=== PATIENT | male | born 1970 | race Caucasian/White ===

== ENCOUNTER 2021-09-30 06:17 | Observation (INO) | payer BC, SELFPAY ==
[2021-09-30] VITALS (8 sets, daily range): BP systolic 100–134; BP diastolic 52–74; PULSE 78–94; RESP 14–22; TEMP 36.1–39.2; O2SAT 90–96; BMI 43.7; BMI 49.5
--- NOTE | 2021-09-30 06:18 | CT_ITS ---
PROCEDURE INFORMATION: Exam: CTA Abdomen and Pelvis With Contrast Exam date and time: 09/30/2021 6:53 AM Age: 51 years old Clinical indication: Abdominal pain; Acute; Additional info: Back pain, severe, on xarelto TECHNIQUE: Imaging protocol: Computed tomographic angiography of the abdomen and pelvis with contrast material. 3D rendering (Not supervised by radiologist): MIP and/or 3D reconstructed images were created by the technologist. Radiation optimization: All CT scans at this facility use at least one of these dose optimization techniques: automated exposure control; mA and/or kV adjustment per patient size (includes targeted exams where dose is matched to clinical indication); or iterative reconstruction. Contrast material: ISOVUE 370; Contrast volume: 75 ml; Contrast route: INTRAVENOUS (IV); COMPARISON: ABDPELW/O CT ABD PELVIS W/O CONTRAST 07/25/2016 8:11 AM FINDINGS: Lungs: Mild linear atelectasis/fibrosis. Aorta: Minimal atherosclerotic disease. No aortic aneurysm. No aortic dissection. Celiac trunk and mesenteric arteries: No occlusion or significant stenosis. Renal arteries: No occlusion or significant stenosis. Right iliac arteries: No occlusion or significant stenosis. Left iliac arteries: No occlusion or significant stenosis. Liver: Probable fatty infiltration of the liver, which is suboptimally evaluated after IV contrast administration. Slightly nodular liver contour; question cirrhosis. Gallbladder and bile ducts: No calcified stones. No ductal dilation. Pancreas: Mild peripancreatic fat stranding suggestive of acute pancreatitis. There is slight stranding around the right adrenal gland, presumably from the pancreas. Spleen: No splenomegaly. Adrenal glands: There is slight stranding around the right adrenal gland, presumably from the pancreas. Kidneys and ureters: 2.8 cm left renal cyst. Stomach and bowel: No obstruction. No significant mucosal thickening. Appendix: No evidence of appendicitis. Intraperitoneal space: No free air. No significant fluid collection. Lymph nodes: No enlarged lymph nodes. Urinary bladder: Unremarkable. No mass. Reproductive: Unremarkable as visualized. Bones/joints: Degenerative changes of the spine. Bilateral pars defects at L5. Soft tissues: Unremarkable. IMPRESSION: 1. Mild peripancreatic fat stranding suggestive of acute pancreatitis. Correlate with lipase. 2. Minimal atherosclerotic disease. Otherwise unremarkable CTA. 3. Slightly nodular liver contour; question cirrhosis. 4. Please see the body of the report for additional findings.
--- NOTE | 2021-09-30 06:20 | HMH.EDGENADL ---
ED Disposition Clinical Impression: Acute pancreatitis Disposition: Still a Patient Condition on Discharge: Fair Instructions: DI for Low Back Pain - Critical Care Critical Care Time: No Attestation: On , the high probability of a clinically significant, sudden or life threatening deterioration of the following system(s) required my full and direct attention, intervention and personal management. The time I documented below is in addition to time spent performing reported procedures but includes the following listed in this critical care notation. Medical Decision Making - Sage Inquiry Pt receiving controlled substance: Yes Sage was queried for this patient: No Risks and benefits of using a controlled substance: were not discussed with pt by me Vital Signs: 09/30/21 06:11 09/30/21 07:24 Temperature 97.0 F L Temperature Source Oral Pulse Rate 88 Pulse Rate [Right Brachial] 88 Respiratory Rate 15 14 Blood Pressure 117/54 L Blood Pressure [Right Arm] 134/74 Blood Pressure Mean [Right Arm] 94 Blood Pressure Source Automatic Cuff Blood Pressure Source [Right Arm] Automatic Cuff Blood Pressure Position Supine Blood Pressure Position [Right Arm] Sitting 02 Sat by Pulse Oximetry 96 90 L Oxygen Delivery Method Room Air Room Air - Lab Data Lab Results 09/30/21 06:13: WBC 7.3, RBC 5.75, Hgb 12.1 L, Hct 37.8 L, MCV 65.7 L, MCH 21.1 L, MCHC 32.0, RDW 15.8, Plt Count 169, MPV 7.9, Neut % (Auto) 88.2 H, Lymph % (Auto) 6.1 L, [place] % (Auto) 5.1, Eos % (Auto) 0.2, Baso % (Auto) 0.4, Neut # (Auto) 6.4, Lymph # (Auto) 0.4 L, [place] # (Auto) 0.4, Eos # (Auto) 0.0, Baso # (Auto) 0.0, Total Counted 100, Neutrophils % (Manual) 88 H, Band Neutrophils % 6.0, Lymphocytes % (Manual) 3 L, Monocytes % (Manual) 3, Platelet Estimate Normal, Poikilocytosis 1+, Microcytosis 3+ 09/30/21 06:13: PT 11.7, INR 1.04, APTT 25.7 09/30/21 06:13: Sodium 139, Potassium 4.1, Chloride 110 H, Carbon Dioxide 23, Anion Gap 10.1, BUN 14, Creatinine 0.90, Estimated Creat Clear 96, Estimated GFR 89, Est GFR ( Amer) 107, Glucose 187 H, Calcium 9.4, Total Bilirubin 0.6, AST 41, ALT 38, Alkaline Phosphatase 39, Total Protein 6.7, Albumin 4.1, Globulin 2.6, Albumin/Globulin Ratio 1.6 09/30/21 06:13: Lipase 583 H 09/30/21 06:27: SARS-CoV-2 (PCR) Not detected, Influenza A Untype (PCR) Not detected, Influenza Type B (PCR) Not detected Result diagrams: 09/30/21 06:13 09/30/21 06:13 Orders (Tests/Meds): ED MEDICATIONS Discontinued Medications Generic Name Dose Route Start Last Admin Trade Name Freq PRN Reason Stop Dose Admin Iopamidol 100 ml 09/30/21 07:13 09/30/21 07:15 Iopamidol-370 (76%);100ml Bottle IV 09/30/21 07:14 100 ml ONCE ONE Administration Ketorolac Tromethamine 30 mg 09/30/21 07:48 09/30/21 07:51 Ketorolac 30mg/Ml Vial IV 09/30/21 07:49 30 mg ONCE ONE Administration Morphine Sulfate 6 mg 09/30/21 06:20 09/30/21 06:37 Morphine 4mg/Ml Syringe IV 09/30/21 06:21 6 mg ONCE ONE Administration Morphine Sulfate 4 mg 09/30/21 07:48 09/30/21 07:50 Morphine 4mg/Ml Syringe IV 09/30/21 07:49 4 mg ONCE ONE Administration Ondansetron HCl 4 mg 09/30/21 06:18 09/30/21 06:37 Ondansetron 4mg/2ml Vial IV 09/30/21 06:19 4 mg ONCE ONE Administration Ondansetron HCl 4 mg 09/30/21 07:49 09/30/21 07:51 Ondansetron 4mg/2ml Vial IV 09/30/21 07:50 4 mg ONCE ONE Administration Sodium Chloride 10 ml 09/30/21 07:13 09/30/21 07:14 Sodium Chloride 0.9% 10ml Syr (Rad Only) IV 09/30/21 07:14 10 ml ONCE ONE Administration Sodium Chloride 50 ml 09/30/21 07:13 09/30/21 07:14 0.9 % Sodium Chloride 50 Ml Vial IV 09/30/21 07:14 50 ml ONCE ONE Administration ORDERS Category Date Time Status UA [Urinalysis and Microscopic] Stat Lab 09/30/21 06:19 Ordered Medical Decision Narrative: DDx includes but not limited to aortic dissection, aortic aneurysm, retrope
[2021-09-30 06:27] LABS: Chloride 110 mmol/L (98-107); Potassium 4.1 mmoL/L (3.5-5.1); Sodium 139 mmol/L (136-145)
[2021-09-30 06:29] LABS: Alanine Aminotransferase 38 U/L (12-78); Blood Urea Nitrogen 14 mg/dl (9-20); Creatinine Clearance Estimated 96 mL/min (50-200); Estimated Glomerular Filt Rate 89 ml/min (>60); GFR (African American) 107 ML/MIN (>60)
[2021-09-30 06:30] LABS: Albumin Level 4.1 g/dl (3.5-5.0); Albumin/Globulin Ratio 1.6 (1.1-1.8); Alkaline Phosphatase 39 U/L (38-126); Anion Gap 10.1 mEq/L (5-15); Aspartate Amino Transferase 41 U/L (17-59); Bilirubin,Total 0.6 mg/dl (0.2-1.3); Calcium 9.4 mg/dl (8.4-10.2); Carbon Dioxide 23 mmol/L (22.0-30.0); Globulin 2.6 g/dL (1.3-3.2); Glucose 187 mg/dl (74-100); Total Protein,Serum 6.7 g/dl (6.3-8.2)
[2021-09-30 06:31] LABS: Basophils % 0.4 % (0.1-2.0); Eosinophils % 0.2 % (0.1-12.0); Hematocrit 37.8 % (42.0-52.0); Hemoglobin 12.1 g/dL (14.1-18.0); Lymphocytes # 0.4 K/mm3 (0.7-4.5); Lymphocytes % 6.1 % (10-50); Mean Corpuscular Hemoglobin 21.1 pg (27.0-31.2); Mean Corpuscular Volume 65.7 fl (80-94); Mean Platelet Volume 7.9 fl (7.4-10.4); Monocytes # 0.4 K/mm3 (0.1-1.0); Monocytes % 5.1 % (1.7-9.3); Neutrophils # 6.4 K/mm3 (1.8-7.8); Neutrophils % 88.2 % (37.0-80.0); Platelet Count 169 K/mm3 (142-424); Red Blood Count 5.75 M/mm3 (4.60-6.20); Red Cell Distribution Width 15.8 % (11.5-17.5); White Blood Count 7.3 K/mm3 (4.8-10.8)
[2021-09-30 06:33] LABS: MANUAL DIFFERENTIAL MANUAL DIFFERENTIAL (MANUAL DIFF)
[2021-09-30 06:38] LABS: Activated Partial Thrombo Time 25.7 seconds (22.8-30.6); INR 1.04 (0.9-1.1); Prothrombin Time 11.7 seconds (10.1-12.5)
[2021-09-30 06:39] LABS: Coronavirus 19, PCR Not Detected (NotDetected); Influenza A, PCR Not Detected (NotDetected); Influenza B, PCR Not Detected (NotDetected)
[2021-09-30 06:41] LABS: Lymphocytes % 3 % (10-50); Microcytosis 3+; Monocytes % 3 % (2-9); Neutrophils % 88 % (42-76); Platelet Estimate Normal; Poikilocytosis 1+; Total Cells Counted 100
[2021-09-30 06:56] LABS: Lipase 583 U/L (23-300)
--- NOTE | 2021-09-30 08:12 | PC.NURSE ---
had dr mayra davidson for this pt to talk about being admitted
--- NOTE | 2021-09-30 08:14 | PC.NURSE ---
dr hurley on the phone with dr nunez
--- NOTE | 2021-09-30 08:17 | PC.NURSE ---
going yo admit pt [facility] for acute pancreatitis
--- NOTE | 2021-09-30 08:21 | PC.NURSE ---
0818 bed assignment requested, room 200. all staff notified
--- NOTE | 2021-09-30 08:22 | HMH.PHAINT ---
MEDICATION RECONCILIATION COMPLETED ON PATIENT USING EXTERNAL FILL HISTORY FROM PHARMACY. -ANDREA CELESTIN, TOMD
--- NOTE | 2021-09-30 08:49 | PC.NURSE ---
report called to floor
--- NOTE | 2021-09-30 08:52 | PC.NURSE ---
o2 2L applied due to o2 sats of 88% ra
--- NOTE | 2021-09-30 09:37 | P.CONPHA_ITS ---
[facility] Pharmacy VTE Monitoring - Patient Demographics Admission date: 09/30/21 Report Date: 09/30/21 Time: 09:37 Allergies/Adverse Reactions: Patient Allergies venom-honey bee [BEE VENOM (HONEY BEE)] Allergy (Mild, Verified 03/03/18 06:38) Height: 1.75 m Weight: 152.067 kg Patient Problems: Current Active Problems Acute pancreatitis (Acute) - VTE Risk Labs: VTE Related Lab Results Hgb 12.1 g/dL (14.1-18.0) L 09/30/21 06:13 Hct 37.8 % (42.0-52.0) L 09/30/21 06:13 Plt Count 169 K/mm3 (142-424) 09/30/21 06:13 PT 11.7 seconds (10.1-12.5) 09/30/21 06:13 INR 1.04 (0.9-1.1) 09/30/21 06:13 APTT 25.7 seconds (22.8-30.6) 09/30/21 06:13 BUN 14 mg/dl (9-20) 09/30/21 06:13 Creatinine 0.90 mg/dl (0.66-1.25) 09/30/21 06:13 Estimated Creat Clear 96 mL/min (50-200) 09/30/21 06:13 - Prophylaxis VTE Prophylaxis Ordered?: Yes Types of VTE Prophylaxis: TEDS Knee High Location of Applied Device: Bilateral Lower Extremeties
--- NOTE | 2021-09-30 14:33 | HMH.HP ---
*Admission Date: 09/30/21 <Glenys Ugalde - 09/30/21 15:07> *Chief complaint: Back/abdominal pain and nausea <Ashly Ugaldehy - 09/30/21 15:07> *History of present illness: Mr. Mcmahon is a 51-year-old male patient with a history of pulmonary embolism in 1999 and in 2014, type 2 diabetes mellitus, hypercholesteremia, depression, sleep apnea who presented to [facility] emergency room after 4 days of acute right low back and abdominal pain. He states he has also been nauseated with vomiting and has been able to eat very little with poor fluid intake. He states he has not been able to take his medicines for 4 days either. His bowels have not moved for 4 days. He denies any upper respiratory symptoms but states he did have a fever. He is voiding without difficulty. With presentation to the emergency room he was found to be afebrile. White blood cell count was 7300 with a hemoglobin of 12.1 hematocrit of 37.8. Potassium was 4.1. BUN and creatinine were within normal limits. Liver function studies showed total bilirubin of 0.6, AST of 41, ALT of 38. Alkaline phosphatase was 39. Lipase was elevated at 583. He was given Ketorolac IV, morphine sulfate IV along with Zofran 4 mg IV. After observing the patient with reassessment he was given additional IV morphine. The patient felt the pain was still not controlled and did not want to go home. He prefered admission for better control of his pain. Thus he was admitted. He had a CTA of the abdomen/pelvis which revealed mild peripancreatic stranding suggestive of acute pancreatitis. Also noted was minimal atherosclerotic disease, slightly nodular liver contour questionng cirrhosis. At the time of this exam patient is awakened for assessment. He continues to have pain although states that it is not as severe. He has had a few sips of Sprite and retained. <Glenys Ugalde - 09/30/21 15:07> [facility] History Medical History: Reports:: Depression, Diabetes Mellitus Type 2, Hyperlipidemia, Pulmonary Embolism Denies:: Cancer, Diabetes Mellitus Type 1, MRSA <Glenys Ugalde 09/30/21 15:07> *Have you ever received a pneumonia vaccine?: No <Glenys Ugalde 09/30/21 15:07> *Have you received a flu vaccine this season?: Yes <Glenys Ugalde 09/30/21 15:07> Comment:: Sleep apnea <Glenys Ugalde 09/30/21 15:07> Amputation: No <Glenys Ugalde 09/30/21 15:07> Fractures: No <Glenys Ugalde 09/30/21 15:07> Comment: Dental procedure 2018 <Glenys Ugalde 09/30/21 15:07> - *Social History Last grade of school completed: High school graduate <Glenys Ugalde 09/30/21 15:07> Smoking Status: Former smoker <Glenys Ugalde 09/30/21 15:07> Smoking End Date: 40 years ago <Glenys Ugalde 09/30/21 15:07> Alcohol Intake: never <Glenys Ugalde 09/30/21 15:07> *Occupational Status:: employed <Glenys Ugalde 09/30/21 15:07> Housing: house <Glenys Ugalde 09/30/21 15:07> Household Members: none <Glenys Ugalde 09/30/21 15:07> *Travel in the last 8 weeks: None <Glenys Ugalde 09/30/21 15:07> Family Hx:: No significant family history, Other (Patient states he does not know family medical history.) <Glenys Ugalde 09/30/21 15:07> Review of Systems - Constitutional Reports fatigue, Reports fever(s) <Glenys Ugalde 09/30/21 15:07> - Eyes Denies change in vision <AftabGlenys 09/30/21 15:07> - ENT Denies ear pain, Denies sore throat <Glenys Ugalde 09/30/21 15:07> - *Cardiovascular Denies chest pain, Denies leg swelling <Glenys Ugalde 09/30/21 15:07> - *Respiratory Denies chest congestion, Denies cough, Denies shortness of breath, Denies coughing up blood <Glenys Ugalde 09/30/21 15:07> - *Gastrointestinal Reports abdominal pain (And mostly right mid flank/back pain), Reports constipation (Last bowel movement was 4 days ago), Reports nausea, Reports vomiting, Denies vomiting blood, Denies black, tarry stools <Glenys Ugalde - 09/30/21 15:07> - *Genitourinary
--- NOTE | 2021-09-30 15:06 | PC.NURSE ---
PATIENT HAS DONE WELL THIS SHIFT. MINIMAL COMPLAINTS. EDUCATION DONE ABOUT PANCREATITIS. DID ASK PATIENT IF SOMEONE COULD BRING HOME CPAP. AT THIS TIME STATED HE DIDNT KNOW. VITALS STABLE
--- NOTE | 2021-09-30 19:55 | PC.NURSE ---
Pt reporting pain at a 9.5 2hrs post last dose of pain medication. Notified that Pt was groaning and rolling around in bed. Pt report of uncontrolled pain and Dx. of pancreatitis. Dr. Hood ordered Morphine to be changed to 5mg Q3hrs PRN and Tylenol 650mg Q 4hrs routine. To help control pain. Pt notified of changes. Dr. Hood stated that PT could have the 5mg of morphine and the Tylenol now. Even though he got the last dose of Morphine 2 hrs prior.
[2021-10-01 02:09] LABS: POC Glucose,Bedside 139 (70-110)
[2021-10-01 02:56] VITALS: RESP 16
[2021-10-01 04:00] VITALS: BP 115/60; PULSE 65; RESP 18; TEMP 37; O2SAT 93
[2021-10-01 05:16] VITALS: BMI 50.3
--- NOTE | 2021-10-01 05:44 | PC.NURSE ---
0400 Pt awakes easily with verbal stimulation. Pt continues to c/o pain in his abd. Morphine increased and Pt reports that pain is now controlled. PT stated that the pain is worse with movement. PT stated i thought that I would have felt better by now. No other changes from initial assessment this shift.
[2021-10-01 06:44] LABS: Basophils % 0.4 % (0.1-2.0); Eosinophils % 0.2 % (0.1-12.0); Hematocrit 36.5 % (42.0-52.0); Hemoglobin 11.4 g/dL (14.1-18.0); Lymphocytes # 0.5 K/mm3 (0.7-4.5); Lymphocytes % 11.2 % (10-50); Mean Corpuscular HGB Conc 31.2 g/dL (31.8-35.4); Mean Corpuscular Hemoglobin 20.8 pg (27.0-31.2); Mean Corpuscular Volume 66.7 fl (80-94); Mean Platelet Volume 8.2 fl (7.4-10.4); Monocytes # 0.3 K/mm3 (0.1-1.0); Monocytes % 6.3 % (1.7-9.3); Neutrophils # 3.9 K/mm3 (1.8-7.8); Platelet Count 131 K/mm3 (142-424); Red Blood Count 5.47 M/mm3 (4.60-6.20); Red Cell Distribution Width 15.6 % (11.5-17.5); White Blood Count 4.8 K/mm3 (4.8-10.8)
[2021-10-01 06:47] LABS: Chloride 104 mmol/L (98-107); Potassium 4.1 mmoL/L (3.5-5.1); Sodium 136 mmol/L (136-145)
[2021-10-01 06:49] LABS: Amylase 63 U/L (30-110)
[2021-10-01 06:50] LABS: Alanine Aminotransferase 44 U/L (12-78); Albumin Level 3.5 g/dl (3.5-5.0); Albumin/Globulin Ratio 1.4 (1.1-1.8); Alkaline Phosphatase 39 U/L (38-126); Anion Gap 6.1 mEq/L (5-15); Aspartate Amino Transferase 49 U/L (17-59); Bilirubin,Total 0.6 mg/dl (0.2-1.3); Blood Urea Nitrogen 13 mg/dl (9-20); Carbon Dioxide 30 mmol/L (22.0-30.0); Creatinine Clearance Estimated 93 mL/min (50-200); Estimated Glomerular Filt Rate 89 ml/min (>60); GFR (African American) 107 ML/MIN (>60); Globulin 2.5 g/dL (1.3-3.2); Glucose 131 mg/dl (74-100)
[2021-10-01 07:18] LABS: Chol/HDL Ratio 3.2 (1-3.5); Cholesterol 143 mg/dl (140-200); HDL Cholesterol 45 mg/dl (40-60); Lipase 223 U/L (23-300); Triglycerides 161 mg/dl (30-150); VLDL Cholesterol 32 mg/dL (0-40)
[2021-10-01 07:29] LABS: Direct LDL Cholesterol 62.04 mg/dL (100-129)
[2021-10-01 07:57] VITALS: BMI 50.3
[2021-10-01 08:00] VITALS: BP 96/47; PULSE 66; RESP 15; TEMP 36.7; O2SAT 88; O2SAT 95
--- NOTE | 2021-10-01 09:11 | HMH.ACPN2 ---
Internal Medicine - PN: Subj *Date: 10/01/21 *Time: 09:11 Interval history: Patient with no new complaints, did have more pain overnight. Exam Vital signs and Labs for Last 24 Hours: Temp Pulse Resp BP Pulse Ox 98.6 F 65 18 115/60 93 L 10/01/21 04:00 10/01/21 04:00 10/01/21 04:00 10/01/21 04:00 10/01/21 04:00 Laboratory Results - last 24 hr 10/01/21 01:48: POC Glucose 139 H 10/01/21 06:29: WBC 4.8 D, RBC 5.47, Hgb 11.4 L, Hct 36.5 L, MCV 66.7 L, MCH 20.8 L, MCHC 31.2 L, RDW 15.6, Plt Count 131 L, MPV 8.2, Neut % (Auto) 82.0 H, Lymph % (Auto) 11.2, [place] % (Auto) 6.3, Eos % (Auto) 0.2, Baso % (Auto) 0.4, Neut # (Auto) 3.9, Lymph # (Auto) 0.5 L, [place] # (Auto) 0.3, Eos # (Auto) 0.0, Baso # (Auto) 0.0 10/01/21 06:29: Sodium 136, Potassium 4.1, Chloride 104, Carbon Dioxide 30, Anion Gap 6.1, BUN 13, Creatinine 0.90, Estimated Creat Clear 93, Estimated GFR 89, Est GFR ( Amer) 107, Glucose 131 H, Calcium 8.0 L, Total Bilirubin 0.6, AST 49, ALT 44, Alkaline Phosphatase 39, Total Protein 6.0 L, Albumin 3.5 D, Globulin 2.5, Albumin/Globulin Ratio 1.4, Amylase 63 10/01/21 06:29: Triglycerides 161 H, Cholesterol 143, LDL Cholesterol Direct 62.04 L, VLDL Cholesterol 32, HDL Cholesterol 45, Cholesterol/HDL Ratio 3.2, Lipase 223 Vital Signs - 24 hr 09/30/21 09:19 09/30/21 09:20 09/30/21 15:58 Temperature 98 F 99.4 F 98.5 F Pulse Rate 87 Pulse Rate [Right Brachial] 86 78 Respiratory Rate 22 20 18 Blood Pressure 118/74 Blood Pressure [Right Arm] 126/65 100/52 L 02 Sat by Pulse Oximetry 94 L 09/30/21 20:00 09/30/21 20:16 10/01/21 02:56 Temperature 102.6 F H Pulse Rate Pulse Rate [Right Brachial] 82 Respiratory Rate 18 16 16 Blood Pressure Blood Pressure [Right Arm] 129/66 02 Sat by Pulse Oximetry 92 L 10/01/21 04:00 Temperature 98.6 F Pulse Rate Pulse Rate [Right Brachial] 65 Respiratory Rate 18 Blood Pressure Blood Pressure [Right Arm] 115/60 02 Sat by Pulse Oximetry 93 L I & O for Last 24 hours: Intake & Output 09/28/21 09/29/21 09/30/21 10/01/21 23:59 23:59 23:59 23:59 Intake Total 780 / 780 Output Total 400 / 500 100 / 100 Balance 380 / 280 -100 / -100 Weight 335 lb 4 oz 340 lb 1.6 oz - Constitutional no acute distress - *Routine HEENT Exam Head: Present: normocephalic Eye: Present: EOMI, PERRL ENT: Present: mucous membranes moist - *Routine Neck Exam Present: supple. Absent: lymphadenopathy - *Routine Respiratory Exam Present: CTA bilaterally - *Routine Cardiovascular Exam Present: RRR - *Routine Abdominal Exam Present: soft, normoactive bowel sounds, tenderness (minimal epigastric) - *Routine Extremities Exam Absent: cyanosis, clubbing, edema - *Routine Skin Exam Present: warm. Absent: rash - *Routine Neurological Exam Present: alert, oriented X3 Assessment and Plan (1) Acute pancreatitis Status: Acute Category: Medical Code(s): K85.90 - Acute pancreatitis without necrosis or infection, unspecified (2) Hypertriglyceridemia Status: Chronic Category: Medical Code(s): E78.1 - Pure hyperglyceridemia (3) Type 2 diabetes mellitus Status: Chronic Category: Medical Code(s): E11.9 - Type 2 diabetes mellitus without complications (4) History of pulmonary embolism Status: Chronic Category: Medical Code(s): Z86.711 - Personal history of pulmonary embolism (5) Obesity Status: Chronic Category: Medical Code(s): E66.9 - Obesity, unspecified - Assessment and plan all Dx Assessment and Plan for all problems:: Lipase has improved, cont. current treatment.
[2021-10-01 16:00] VITALS: BP 122/66; PULSE 85; RESP 22; TEMP 36.7; O2SAT 92
--- NOTE | 2021-10-01 19:21 | PC.NURSE ---
AOX4, ABLE TO MAKE NEEDS KNOWN TO STAFF, HAS REFUSED TYLENOL STATING THAT IT DOESNT WORK. PAIN WELL CONTROLLED WITH MORPHINE. 2LNC. TOLERATING LIQUIDS WELL.
[2021-10-01 20:00] VITALS: BP 120/67; PULSE 81; RESP 18; TEMP 37.9; O2SAT 90
[2021-10-02] VITALS (8 sets, daily range): BP systolic 101–135; BP diastolic 65–78; PULSE 65–79; RESP 16–22; TEMP 36.6–37.6; O2SAT 90–97; BMI 50.3
--- NOTE | 2021-10-02 06:06 | PC.NURSE ---
0400 PT refused IV fluids this shift and tylenol. Pt stated that he wanted to go home and that he felt much better now. Pt has only taken x1 dose of morphine thus far. Able to make needs known and call patel within reach.
--- NOTE | 2021-10-02 08:13 | HMH.ACPN2 ---
<Glenys Ugalde - Last Filed: 10/02/21 08:13> Internal Medicine - PN: Subj *Date: 10/02/21 *Time: 08:13 Interval history: Patient is miserable. States the abdominal pain is worse than ever. Pain medicine does help. Bowels have not moved but he is passing flatus. He was awake all night. He is able to take some clear liquids. He is voiding QS. He has not walked or has not been out of bed. He does sit on the side of the bed. Bowels have not moved. He occasionally has some slight nausea. But his biggest complaint is abdominal pain. Exam Vital signs and Labs for Last 24 Hours: Temp Pulse Resp BP Pulse Ox 98.8 F 79 22 135/78 90 L 10/02/21 07:44 10/02/21 07:44 10/02/21 07:44 10/02/21 07:44 10/02/21 07:44 I & O for Last 24 hours: Intake & Output 09/29/21 09/30/21 10/01/21 10/02/21 11:59 11:59 11:59 11:59 Intake Total 780 / 780 1580 / 1580 Output Total 500 / 500 725 / 725 Balance 280 / 280 855 / 855 Weight 335 lb 4 oz 339 lb 8.19 oz 339 lb 8.19 oz - Constitutional mild distress Comments: Sitting on the bedside and appears in pain - *Routine Respiratory Exam Present: CTA bilaterally (Anteriorly and posteriorly) - *Routine Cardiovascular Exam Present: RRR - *Routine Abdominal Exam Present: soft, tenderness, obese. Absent: normoactive bowel sounds (Hyperactive) - *Routine Extremities Exam Absent: edema, calf tenderness - *Routine Neurological Exam Present: alert, oriented X3 Assessment and Plan (1) Acute pancreatitis Status: Acute Category: Medical Code(s): K85.90 - Acute pancreatitis without necrosis or infection, unspecified (2) Hypertriglyceridemia Status: Chronic Category: Medical Code(s): E78.1 - Pure hyperglyceridemia (3) Type 2 diabetes mellitus Status: Chronic Category: Medical Code(s): E11.9 - Type 2 diabetes mellitus without complications (4) History of pulmonary embolism Status: Chronic Category: Medical Code(s): Z86.711 - Personal history of pulmonary embolism (5) Obesity Status: Chronic Category: Medical Code(s): E66.9 - Obesity, unspecified - Assessment and plan all Dx Assessment and Plan for all problems:: Continue with pain management. Ambulation encouraged. <Santi Wilson - Last Filed: 10/02/21 14:01> Internal Medicine - PN: Subj *Date: 10/02/21 *Time: 14:01 Exam Vital signs and Labs for Last 24 Hours: Temp Pulse Resp BP Pulse Ox 98.8 F 79 22 135/78 90 L 10/02/21 07:44 10/02/21 07:44 10/02/21 07:44 10/02/21 07:44 10/02/21 07:44 I & O for Last 24 hours: Intake & Output 09/29/21 09/30/21 10/01/21 10/02/21 23:59 23:59 23:59 23:59 Intake Total 780 / 780 960 / 960 860 / 860 Output Total 400 / 500 425 / 825 400 / 400 Balance 380 / 280 535 / 135 460 / 460 Weight 335 lb 4 oz 339 lb 8.19 oz 339 lb 8.19 oz Assessment and Plan (1) Acute pancreatitis Status: Acute Category: Medical Code(s): K85.90 - Acute pancreatitis without necrosis or infection, unspecified (2) Hypertriglyceridemia Status: Chronic Category: Medical Code(s): E78.1 - Pure hyperglyceridemia (3) Type 2 diabetes mellitus Status: Chronic Category: Medical Code(s): E11.9 - Type 2 diabetes mellitus without complications (4) History of pulmonary embolism Status: Chronic Category: Medical Code(s): Z86.711 - Personal history of pulmonary embolism (5) Obesity Status: Chronic Category: Medical Code(s): E66.9 - Obesity, unspecified - Assessment and plan all Dx Assessment and Plan for all problems:: Saw patient, agree with above note.
--- NOTE | 2021-10-02 11:59 | PC.NURSE ---
OFFERED PT ANGELA TYLENOL DOSE. HE REFUSED ADMINISTRATION.
[2021-10-03] VITALS: BP 134/74; PULSE 80; RESP 20; TEMP 36.7; O2SAT 95
[2021-10-03 04:00] VITALS: BP 121/61; PULSE 72; RESP 16; TEMP 37.2; O2SAT 95
--- NOTE | 2021-10-03 04:07 | PC.NURSE ---
0400 Pt up in room ambulating this shift. Pt took a shower and stripped and remade his bed. Pt di request pain medication x2 this shift. Pt remains on clears but stated that he felt much better this shift. Still reports occasional abd discomfort. Pain medications are effective. Refuses tylenol. Pt very appreciative of the care that he has received.
[2021-10-03 05:10] VITALS: BMI 49.7
[2021-10-03 07:00] LABS: Chloride 103 mmol/L (98-107)
[2021-10-03 07:01] LABS: Potassium 3.7 mmoL/L (3.5-5.1); Sodium 136 mmol/L (136-145)
[2021-10-03 07:03] LABS: Alanine Aminotransferase 34 U/L (12-78); Alkaline Phosphatase 59 U/L (38-126); Anion Gap 9.7 mEq/L (5-15); Aspartate Amino Transferase 32 U/L (17-59); Bilirubin,Total 0.6 mg/dl (0.2-1.3); Blood Urea Nitrogen 14 mg/dl (9-20); Carbon Dioxide 27 mmol/L (22.0-30.0); Creatinine Clearance Estimated 119 mL/min (50-200); Estimated Glomerular Filt Rate 118 ml/min (>60); GFR (African American) 143 ML/MIN (>60); Lipase 52 U/L (23-300)
[2021-10-03 07:04] LABS: Albumin Level 3.5 g/dl (3.5-5.0); Albumin/Globulin Ratio 1.3 (1.1-1.8); Calcium 7.8 mg/dl (8.4-10.2); Globulin 2.8 g/dL (1.3-3.2); Glucose 145 mg/dl (74-100); Total Protein,Serum 6.3 g/dl (6.3-8.2)
[2021-10-03 08:00] VITALS: BP 124/73; PULSE 75; RESP 16; TEMP 37.3; O2SAT 89
--- NOTE | 2021-10-03 08:10 | HMH.ACPN2 ---
<Marva Cedillo - Last Filed: 10/03/21 08:10> Internal Medicine - PN: Subj *Date: 10/03/21 *Time: 08:10 Interval history: Patient states he still feels bad this morning. The pain in his back is sometimes unbearable. He states the morphine is the only thing that helps but it does not last very long. He did not sleep all night. He was able to eat some Jell-O this morning without any nausea or vomiting. Exam Vital signs and Labs for Last 24 Hours: Temp Pulse Resp BP Pulse Ox 99.0 F 72 16 121/61 95 10/03/21 04:00 10/03/21 04:00 10/03/21 04:00 10/03/21 04:00 10/03/21 04:00 Laboratory Results - last 24 hr 10/03/21 06:41: Sodium 136, Potassium 3.7, Chloride 103, Carbon Dioxide 27, Anion Gap 9.7, BUN 14, Creatinine 0.70 D, Estimated Creat Clear 119, Estimated GFR 118, Est GFR ( Amer) 143 D, Glucose 145 H, Calcium 7.8 L, Total Bilirubin 0.6, AST 32 D, ALT 34, Alkaline Phosphatase 59, Total Protein 6.3, Albumin 3.5, Globulin 2.8, Albumin/Globulin Ratio 1.3, Lipase 52 I & O for Last 24 hours: Intake & Output 09/30/21 10/01/21 10/02/21 10/03/21 11:59 11:59 11:59 11:59 Intake Total 780 / 780 1580 / 1580 720 / 720 Output Total 500 / 500 725 / 725 Balance 280 / 280 855 / 855 719 / 719 Weight 335 lb 4 oz 339 lb 8.19 oz 339 lb 8.19 oz 336 lb 1.6 oz - Constitutional no acute distress - *Routine Respiratory Exam Present: CTA bilaterally - *Routine Cardiovascular Exam Present: RRR - *Routine Abdominal Exam Present: soft, normoactive bowel sounds, tenderness (Epigastric area radiating through to the back) - *Routine Extremities Exam Present: edema (Bilateral lower extremity). Absent: cyanosis, clubbing - *Routine Skin Exam Present: warm. Absent: rash - *Routine Neurological Exam Present: alert, oriented X3 Assessment and Plan (1) Acute pancreatitis Status: Acute Category: Medical Code(s): K85.90 - Acute pancreatitis without necrosis or infection, unspecified (2) Hypertriglyceridemia Status: Chronic Category: Medical Code(s): E78.1 - Pure hyperglyceridemia (3) Type 2 diabetes mellitus Status: Chronic Category: Medical Code(s): E11.9 - Type 2 diabetes mellitus without complications (4) History of pulmonary embolism Status: Chronic Category: Medical Code(s): Z86.711 - Personal history of pulmonary embolism (5) Obesity Status: Chronic Category: Medical Code(s): E66.9 - Obesity, unspecified - Assessment and plan all Dx Assessment and Plan for all problems:: Patient's lipase has normalized but he is still having pain. Will discuss further care with Dr. Wilson. <Santi Wilson - Last Filed: 10/03/21 08:15> Internal Medicine - PN: Subj *Date: 10/03/21 *Time: 08:14 Exam Vital signs and Labs for Last 24 Hours: Temp Pulse Resp BP Pulse Ox 99.0 F 72 16 121/61 95 10/03/21 04:00 10/03/21 04:00 10/03/21 04:00 10/03/21 04:00 10/03/21 04:00 Laboratory Results - last 24 hr 10/03/21 06:41: Sodium 136, Potassium 3.7, Chloride 103, Carbon Dioxide 27, Anion Gap 9.7, BUN 14, Creatinine 0.70 D, Estimated Creat Clear 119, Estimated GFR 118, Est GFR ( Amer) 143 D, Glucose 145 H, Calcium 7.8 L, Total Bilirubin 0.6, AST 32 D, ALT 34, Alkaline Phosphatase 59, Total Protein 6.3, Albumin 3.5, Globulin 2.8, Albumin/Globulin Ratio 1.3, Lipase 52 I & O for Last 24 hours: Intake & Output 09/30/21 10/01/21 10/02/21 10/03/21 23:59 23:59 23:59 23:59 Intake Total 780 / 780 960 / 960 1340 / 1340 Output Total 400 / 500 425 / 825 400 / 401 1 / 1 Balance 380 / 280 535 / 135 940 / 939 -1 / -1 Weight 335 lb 4 oz 339 lb 8.19 oz 339 lb 8.19 oz 336 lb 1.6 oz Assessment and Plan (1) Acute pancreatitis Status: Acute Category: Medical Code(s): K85.90 - Acute pancreatitis without necrosis or infection, unspecified (2) Hypertriglyceridemia Status: Chronic Category: Medical Code(s): E78.1 - Pure hyperglyceridem
[2021-10-03 08:15] VITALS: O2SAT 89
[2021-10-03 10:22] LABS: Hematocrit 34.8 % (42.0-52.0); Mean Corpuscular Volume 63.9 fl (80-94); Red Blood Count 5.45 M/mm3 (4.60-6.20); White Blood Count 6.5 K/mm3 (4.8-10.8)
[2021-10-03 10:23] LABS: Mean Corpuscular HGB Conc 31.6 g/dL (31.8-35.4); Mean Corpuscular Hemoglobin 20.2 pg (27.0-31.2); Mean Platelet Volume 11.6 fl (7.4-10.4); Platelet Count 183 K/mm3 (142-424); Red Cell Distribution Width 15.4 % (11.5-17.5)
[2021-10-03 15:40] VITALS: BP 128/59; PULSE 63; RESP 16; TEMP 36.9; O2SAT 93
[2021-10-03 15:43] LABS: Basophils % 0.3 % (0.1-2.0); Eosinophils % 0.6 % (0.1-12.0); Lymphocytes % 9.2 % (10-50); Monocytes % 11.8 % (1.7-9.3); Neutrophils % 77.8 % (37.0-80.0)
[2021-10-03 15:44] LABS: Lymphocytes # 0.6 K/mm3 (0.7-4.5); Monocytes # 0.8 K/mm3 (0.1-1.0)
--- NOTE | 2021-10-03 19:29 | PC.NURSE ---
16:30 - Routine reassessment completed. Pt. reports pain under control at this time. Pt. denies needs, No acute changes noted from previous assessment. Will continue to monitor.
[2021-10-03 20:00] VITALS: BP 117/37; PULSE 71; RESP 18; TEMP 36.7; O2SAT 100
--- NOTE | 2021-10-04 00:30 | PC.NURSE ---
RESP CARE NOTE: Pt SPO2 at 92% on room air.
[2021-10-04 04:00] VITALS: BP 137/77; PULSE 62; RESP 15; TEMP 36.8; O2SAT 93
[2021-10-04 07:25] VITALS: BP 157/78; PULSE 76; RESP 18; TEMP 36.6; O2SAT 96
[2021-10-04 08:00] VITALS: O2SAT 96
--- NOTE | 2021-10-04 08:39 | HMH.ACPN2 ---
<Marva Cedillo - Last Filed: 10/04/21 08:39> Internal Medicine - PN: Subj *Date: 10/04/21 *Time: 08:39 Interval history: Patient states he continues with horrible back pain today. He denies any abdominal pain and states he can eat without feeling nauseated or vomiting. He states the morphine only helps his back pain for a short time. He complains of the pain as a spasm type pain when he moves. He states he cannot take a shower or even put on his socks without having muscle spasm in his back. Exam Vital signs and Labs for Last 24 Hours: Temp Pulse Resp BP Pulse Ox 97.9 F 76 18 157/78 H 96 10/04/21 07:25 10/04/21 07:25 10/04/21 07:25 10/04/21 07:25 10/04/21 07:25 Laboratory Results - last 24 hr 10/03/21 06:41: WBC 6.5 D, RBC 5.45, Hgb 11.0 L, Hct 34.8 L, MCV 63.9 L, MCH 20.2 L, MCHC 31.6 L, RDW 15.4, Plt Count 183 D, MPV 11.6 H, Neut % (Auto) 77.8, Lymph % (Auto) 9.2 L, [place] % (Auto) 11.8 H, Eos % (Auto) 0.6, Baso % (Auto) 0.3, Neut # (Auto) 5.0, Lymph # (Auto) 0.6 L, [place] # (Auto) 0.8, Eos # (Auto) 0.0, Baso # (Auto) 0.0 I & O for Last 24 hours: Intake & Output 10/01/21 10/02/21 10/03/21 10/04/21 11:59 11:59 11:59 11:59 Intake Total 780 / 780 1580 / 1580 960 / 960 1440 / 1440 Output Total 500 / 500 725 / 725 Balance 280 / 280 855 / 855 959 / 959 1440 / 1440 Weight 339 lb 8.19 oz 339 lb 8.19 oz 336 lb 1.6 oz - Constitutional no acute distress - *Routine Respiratory Exam Present: CTA bilaterally - *Routine Cardiovascular Exam Present: RRR - *Routine Abdominal Exam Present: soft, normoactive bowel sounds. Absent: tenderness - *Routine Extremities Exam Absent: cyanosis, clubbing, edema - Routine Back/Spine/Pelvis Exam Back/Spine: Present: paraspinal tenderness (Along the T-spine), muscle spasm (Along the T-spine) - *Routine Skin Exam Present: warm. Absent: rash - *Routine Neurological Exam Present: alert, oriented X3 Assessment and Plan (1) Acute pancreatitis Status: Acute Category: Medical Code(s): K85.90 - Acute pancreatitis without necrosis or infection, unspecified (2) Hypertriglyceridemia Status: Chronic Category: Medical Code(s): E78.1 - Pure hyperglyceridemia (3) Type 2 diabetes mellitus Status: Chronic Category: Medical Code(s): E11.9 - Type 2 diabetes mellitus without complications (4) History of pulmonary embolism Status: Chronic Category: Medical Code(s): Z86.711 - Personal history of pulmonary embolism (5) Obesity Status: Chronic Category: Medical Code(s): E66.9 - Obesity, unspecified (6) Back pain Status: Acute Category: Medical Code(s): M54.9 - Dorsalgia, unspecified (7) Muscle spasm Status: Acute Category: Medical Code(s): M62.838 - Other muscle spasm - Assessment and plan all Dx Assessment and Plan for all problems:: Patient's pancreatic enzymes have normalized. His problem now appears to be musculoskeletal in nature. Will start the patient on steroids and muscle relaxants and advanced to a soft diet. <Santi Wilson - Last Filed: 10/04/21 08:53> Internal Medicine - PN: Subj *Date: 10/04/21 *Time: 08:52 Exam Vital signs and Labs for Last 24 Hours: Temp Pulse Resp BP Pulse Ox 97.9 F 76 18 157/78 H 96 10/04/21 07:25 10/04/21 07:25 10/04/21 07:25 10/04/21 07:25 10/04/21 07:25 Laboratory Results - last 24 hr 10/03/21 06:41: WBC 6.5 D, RBC 5.45, Hgb 11.0 L, Hct 34.8 L, MCV 63.9 L, MCH 20.2 L, MCHC 31.6 L, RDW 15.4, Plt Count 183 D, MPV 11.6 H, Neut % (Auto) 77.8, Lymph % (Auto) 9.2 L, [place] % (Auto) 11.8 H, Eos % (Auto) 0.6, Baso % (Auto) 0.3, Neut # (Auto) 5.0, Lymph # (Auto) 0.6 L, [place] # (Auto) 0.8, Eos # (Auto) 0.0, Baso # (Auto) 0.0 I & O for Last 24 hours: Intake & Output 10/01/21 10/02/21 10/03/21 10/04/21 23:59 23:59 23:59 23:59 Intake Total 960 / 960 1340 / 1340 1200 / 1200 480 / 480 Output Total 425 / 825 400 / 401 Balance 535 / 135 9
[2021-10-04 14:54] VITALS: BP 142/70; PULSE 65; RESP 18; TEMP 36.6; O2SAT 95
--- NOTE | 2021-10-07 15:29 | HMH.DCSUM ---
General - General Admission date:: 09/30/21 Discharge date: 10/04/21 HPI HPI: Mr. Mcmahon is a 51-year-old male patient with a history of pulmonary embolism in 1999 and in 2014, type 2 diabetes mellitus, hypercholesteremia, depression, sleep apnea who presented to [facility] emergency room after 4 days of acute right low back and abdominal pain. He stated he had also been nauseated with vomiting and was eating very little with poor fluid intake. He stated he had not been able to take his medicines for 4 days. His bowels had not moved for 4 days. He denied any upper respiratory symptoms but stated he did have a fever. He was voiding without difficulty. With presentation to the emergency room he was found to be afebrile. White blood cell count was 7300 with a hemoglobin of 12.1 hematocrit of 37.8. Potassium was 4.1. BUN and creatinine were within normal limits. Liver function studies showed total bilirubin of 0.6, AST of 41, ALT of 38. Alkaline phosphatase was 39. Lipase was elevated at 583. He was given Ketorolac IV, morphine sulfate IV along with Zofran 4 mg IV. After observing the patient with reassessment he was given additional IV morphine. The patient felt the pain was still not controlled and did not want to go home. He prefered admission for better control of his pain. Thus he was admitted. He had a CTA of the abdomen/pelvis which revealed mild peripancreatic stranding suggestive of acute pancreatitis. Also noted was minimal atherosclerotic disease, slightly nodular liver contour questionng cirrhosis. At the time of exam patient was awakened for assessment. He continued to have pain although stated that it was not as severe. He had tolerated a few sips of Sprite and retained. Hospital Course Hospital Course: On admission patient was maintained on IV fluids with GI rest, pain and nausea management.He made gradual improvement but continued to require morphine for abdominal pain. Laboratory data did improve with amylase and lipase normalizing.. Renal and liver function were normal on 10/03/2021. He was experiencing intermittent abdominal pain but was able to eat and ambulate without difficulty. He did develop lower back pain and was started on Muscle relaxants and steroids. On 10/04/2021 patient was stable to be discharged home. He was to follow-up with Dr. Wilson. Medications as per medication reconciliation list. Objective Vital signs: Temp Pulse Resp BP Pulse Ox 97.9 F 65 18 142/70 H 95 10/04/21 14:54 10/04/21 14:54 10/04/21 14:54 10/04/21 14:54 10/04/21 14:54 Narrative: Exam Vital signs and Labs for Last 24 Hours: Temp Pulse Resp BP Pulse Ox 97.9 F 76 18 157/78 H 96 10/04/21 07:25 10/04/21 07:25 10/04/21 07:25 10/04/21 07:25 10/04/21 07:25 Laboratory Results - last 24 hr 10/03/21 06:41: WBC 6.5 D, RBC 5.45, Hgb 11.0 L, Hct 34.8 L, MCV 63.9 L, MCH 20.2 L, MCHC 31.6 L, RDW 15.4, Plt Count 183 D, MPV 11.6 H, Neut % (Auto) 77.8, Lymph % (Auto) 9.2 L, [place] % (Auto) 11.8 H, Eos % (Auto) 0.6, Baso % (Auto) 0.3, Neut # (Auto) 5.0, Lymph # (Auto) 0.6 L, [place] # (Auto) 0.8, Eos # (Auto) 0.0, Baso # (Auto) 0.0 I & O for Last 24 hours: Intake & Output 10/01/21 10/02/21 10/03/21 10/04/21 11:59 11:59 11:59 11:59 Intake Total 780 / 780 1580 / 1580 960 / 960 1440 / 1440 Output Total 500 / 500 725 / 725 Balance 280 / 280 855 / 855 959 / 959 1440 / 1440 Weight 339 lb 8.19 oz 339 lb 8.19 oz 336 lb 1.6 oz - Constitutional no acute distress - *Routine Respiratory Exam Present: CTA bilaterally - *Routine Cardiovascular Exam Present: RRR - *Routine Abdominal Exam Present: soft, normoactive bowel sounds. Absent: tenderness - *Routine Extremities Exam Absent: cyanosis, clubbing, edema - Routine Back/Spine/Pelvis Exam Back/Spine: Present: paraspinal tenderness (Along the T-spine), muscle spasm (Along the T-spine) - *Routin
--- NOTE | 2021-10-07 15:31 | CARE MANAGER ---
Contacted patient related to hospital discharge follow up. Patient is taking medication as prescribed and is helping back pain. He has follow up appt. scheduled. No other questions or concerns at this time. FIDELINA Tripp
== END 2021-10-04 17:00 | disposition home or self-care (01) ==
LOC: ER 08:04 → 2ND 10-01 01:02
PROVIDERS: Nurse Practitioner Family; Admitting Provider Family Medicine; Emergency Provider Student in an Organized Health Care Education/Training Program; PCP Family Medicine; Visit Provider Family Medicine
DX: K85.90 Acute pancreatitis without necrosis or infection, unspecified (principal); Z87.891 Personal history of nicotine dependence; F32.A Depression, unspecified; E11.9 Type 2 diabetes mellitus without complications; E78.5 Hyperlipidemia, unspecified; Z86.711 Personal history of pulmonary embolism; E78.1 Pure hyperglyceridemia; E66.9 Obesity, unspecified; Z68.42 Body mass index [BMI] 45.0-49.9, adult; M54.9 Dorsalgia, unspecified; M62.838 Other muscle spasm
CPT/HCPCS: 36415; 74174; 80053; 80061; 82150; 82962; 83690; 85007; 85025; 85610; 85730; 94761; 96365; 96375; 96376; 99285; C9803; G0378; J2405; Q9967; U0003; U0005

== ENCOUNTER 2021-10-06 11:27 | Emergency (ER) | payer BC, OTHER, SELFPAY ==
--- NOTE | 2021-10-06 11:11 | ECG_ITS ---
APPROVED REPORT Exam: Resting ECG HR:51 bpm ECG Measurements Heart Rate 51 AXES AL 209 P 32 QRSd 152 QRS 37 QT 491 T 79 QTc 466 Conclusion SINUS BRADYCARDIA LEFT BUNDLE BRANCH BLOCK [120+ ms QRS DURATION, 80+ ms Q/S IN V1/V2, 85+ ms R IN I/aVL/V5/V6] ABNORMAL ECG UNCONFIRMED REPORT Electronically signed by : Sheldon Ellington MD 10/09/2021 10:15:16
--- NOTE | 2021-10-06 11:16 | HMH.EDGENADL ---
ED Disposition Clinical Impression: Back pain Disposition: Home, Self-Care Condition on Discharge: Good Instructions: DI for Acute Pain -- Adult Prescriptions: Ketorolac Tromethamine [Toradol 10mg tablet] 10 mg PO Q8HP PRN #12 tab MDD 40mg/day PRN Reason: Muscle Pain Transmission [facility] Cyclobenzaprine HCl [Flexeril 10mg tablet] 10 mg PO TID PRN 10 Days #30 tab PRN Reason: Muscle Spasm Transmission Status: Received by [id number] Referrals: Santi Wilson MD [Primary Care Provider] - - Critical Care Critical Care Time: No Attestation: On , the high probability of a clinically significant, sudden or life threatening deterioration of the following system(s) required my full and direct attention, intervention and personal management. The time I documented below is in addition to time spent performing reported procedures but includes the following listed in this critical care notation. Medical Decision Making - Sage Inquiry Pt receiving controlled substance: No Vital Signs: 10/06/21 11:23 10/06/21 11:30 10/06/21 12:31 Temperature 98.2 F Temperature Source Oral Pulse Rate 65 49 L Pulse Rate [Left Radial] 48 L Respiratory Rate 14 Blood Pressure 116/59 L 109/51 L Blood Pressure [Right Arm] 119/63 Blood Pressure Mean 67 59 Blood Pressure Mean [Right Arm] 81 02 Sat by Pulse Oximetry 96 94 L 96 Oxygen Delivery Method Room Air 10/06/21 12:46 10/06/21 13:01 Temperature Temperature Source Pulse Rate 49 L 49 L Pulse Rate [Left Radial] Respiratory Rate Blood Pressure 126/65 117/68 Blood Pressure [Right Arm] Blood Pressure Mean 85 76 Blood Pressure Mean [Right Arm] 02 Sat by Pulse Oximetry 97 96 Oxygen Delivery Method - Lab Data Lab Results 10/06/21 11:10: WBC 10.3, RBC 5.31, Hgb 11.0 L, Hct 34.2 L, MCV 64.3 L, MCH 20.8 L, MCHC 32.3, RDW 15.6, Plt Count 329 D, MPV 7.8, Neut % (Auto) 75.5, Lymph % (Auto) 14.9, [place] % (Auto) 6.5, Eos % (Auto) 1.6, Baso % (Auto) 1.5, Neut # (Auto) 7.8, Lymph # (Auto) 1.5, [place] # (Auto) 0.7, Eos # (Auto) 0.2, Baso # (Auto) 0.2 10/06/21 11:10: D-Dimer 1.43 H 10/06/21 11:10: Sodium 143, Potassium 3.7, Chloride 109 H, Carbon Dioxide 28, Anion Gap 9.7, BUN 28 H, Creatinine 0.60 L, Estimated Creat Clear 144, Estimated GFR 141, Est GFR ( Amer) 171, Glucose 150 H, Calcium 8.9, Total Bilirubin 0.6, AST 43, ALT 53, Alkaline Phosphatase 74, Troponin I < 0.01, Total Protein 6.6, Albumin 3.7, Globulin 2.9, Albumin/Globulin Ratio 1.3, Lipase 131 Result diagrams: 10/06/21 11:10 10/06/21 11:10 Orders (Tests/Meds): ED MEDICATIONS Discontinued Medications Generic Name Dose Route Start Last Admin Trade Name Reaz PRN Reason Stop Dose Admin Acetaminophen 1,000 mg 10/06/21 11:29 10/06/21 11:38 Acetaminophen 500mg Tab PO 10/06/21 11:30 1,000 mg ONCE ONE Administration Cyclobenzaprine HCl 10 mg 10/06/21 12:50 10/06/21 12:58 Cyclobenzaprine 10mg Tablet PO 10/06/21 12:51 10 mg ONCE ONE Administration Iopamidol 75 ml 10/06/21 12:14 10/06/21 12:15 Iopamidol-370 (76%);100ml Bottle IV 10/06/21 12:15 75 ml ONCE ONE Administration Ketorolac Tromethamine 15 mg 10/06/21 12:50 10/06/21 12:59 Ketorolac 30mg/Ml Vial IV 10/06/21 12:51 15 mg ONCE ONE Administration Sodium Chloride 10 ml 10/06/21 12:14 10/06/21 12:15 Sodium Chloride 0.9% 10ml Syr (Rad Only) IV 10/06/21 12:15 10 ml ONCE ONE Administration Sodium Chloride 50 ml 10/06/21 12:14 10/06/21 12:15 0.9 % Sodium Chloride 50 Ml Vial IV 10/06/21 12:15 50 ml ONCE ONE Administration ORDERS Category Date Time Status Troponin I Q3H Lab 10/06/21 14:30 Ordered Troponin I Q3H Lab 10/06/21 17:30 Ordered ECG Request by /Dianne Stat Y 10/06/21 11:20 Ordered Medical Decision Narrative: Differential diagnosis includes but is not limited to ACS, PE, recurrent pancreatitis, arr
--- NOTE | 2021-10-06 11:20 | XR_ITS ---
PROCEDURE INFORMATION: Exam: XR Chest Exam date and time: 10/06/2021 11:26 AM Age: 51 years old Clinical indication: Pain; Left-sided; Additional info: Left upper back pain TECHNIQUE: Imaging protocol: XR of the chest. Views: 1 view. COMPARISON: CR CXR2V XR chest 2V 03/03/2018 6:44 AM FINDINGS: Lungs: Slight decrease in lung volumes with mild pulmonary vascular congestion and crowding of the vasculature. Mild right basilar linear atelectasis or scarring. No focal consolidation. Pleural spaces: Unremarkable. No pleural effusion. No pneumothorax. Heart/Mediastinum: Prominence of the cardiac silhouette, accentuated by the AP projection. Bones/joints: Scoliosis and osteoarthritic changes IMPRESSION: Slight decrease in lung volumes with mild pulmonary vascular congestion and crowding of the vasculature. Mild right basilar linear atelectasis or scarring. No focal consolidation.
[2021-10-06 11:21] VITALS: BMI 44.3
[2021-10-06 11:23] VITALS: BP 119/63; PULSE 48; RESP 14; TEMP 36.8; O2SAT 96; BMI 44.3
[2021-10-06 11:28] LABS: Basophils # 0.2 K/mm3 (0-0.2); Basophils % 1.5 % (0.1-2.0); Eosinophils # 0.2 K/mm3 (0.0-0.4); Eosinophils % 1.6 % (0.1-12.0); Hematocrit 34.2 % (42.0-52.0); Lymphocytes # 1.5 K/mm3 (0.7-4.5); Lymphocytes % 14.9 % (10-50); Mean Corpuscular HGB Conc 32.3 g/dL (31.8-35.4); Mean Corpuscular Hemoglobin 20.8 pg (27.0-31.2); Mean Corpuscular Volume 64.3 fl (80-94); Mean Platelet Volume 7.8 fl (7.4-10.4); Monocytes # 0.7 K/mm3 (0.1-1.0); Monocytes % 6.5 % (1.7-9.3); Neutrophils # 7.8 K/mm3 (1.8-7.8); Neutrophils % 75.5 % (37.0-80.0); Platelet Count 329 K/mm3 (142-424); Red Blood Count 5.31 M/mm3 (4.60-6.20); Red Cell Distribution Width 15.6 % (11.5-17.5); White Blood Count 10.3 K/mm3 (4.8-10.8)
[2021-10-06 11:30] VITALS: BP 116/59; PULSE 65; O2SAT 94
[2021-10-06 11:37] LABS: Alanine Aminotransferase 53 U/L (12-78); Albumin Level 3.7 g/dl (3.5-5.0); Albumin/Globulin Ratio 1.3 (1.1-1.8); Alkaline Phosphatase 74 U/L (38-126); Anion Gap 9.7 mEq/L (5-15); Aspartate Amino Transferase 43 U/L (17-59); Bilirubin,Total 0.6 mg/dl (0.2-1.3); Blood Urea Nitrogen 28 mg/dl (9-20); Calcium 8.9 mg/dl (8.4-10.2); Carbon Dioxide 28 mmol/L (22.0-30.0); Chloride 109 mmol/L (98-107); Creatinine Clearance Estimated 144 mL/min (50-200); Estimated Glomerular Filt Rate 141 ml/min (>60); GFR (African American) 171 ML/MIN (>60); Globulin 2.9 g/dL (1.3-3.2); Glucose 150 mg/dl (74-100); Lipase 131 U/L (23-300); Potassium 3.7 mmoL/L (3.5-5.1); Sodium 143 mmol/L (136-145); Total Protein,Serum 6.6 g/dl (6.3-8.2)
[2021-10-06 11:42] LABS: D-Dimer 1.43 ug/mL (0.0-0.5)
--- NOTE | 2021-10-06 11:48 | CT_ITS ---
PROCEDURE INFORMATION: Exam: CTA Chest With Contrast Exam date and time: 10/06/2021 12:02 PM Age: 51 years old Clinical indication: Pain; Left-sided; Additional info: Left upper back pain with elevated dimer, HX pe-- TECHNIQUE: Imaging protocol: Computed tomographic angiography of the chest with contrast. 3D rendering (Not supervised by radiologist): MIP and/or 3D reconstructed images were created by the technologist. Radiation optimization: All CT scans at this facility use at least one of these dose optimization techniques: automated exposure control; mA and/or kV adjustment per patient size (includes targeted exams where dose is matched to clinical indication); or iterative reconstruction. Contrast material: ISOVUE; Contrast volume: 75 ml; Contrast route: INTRAVENOUS (IV); COMPARISON: [facility] CT angio chest 03/03/2018 8:20 AM FINDINGS: Pulmonary arteries: The peripheral pulmonary arteries are suboptimally evaluated/opacified. Otherwise, no evidence of a pulmonary embolus. Aorta: No aortic aneurysm. No aortic dissection. Lungs: Moderate mosaic attenuation in both lungs, compatible with air trapping. There are also some mild ground-glass opacities in both lungs, greater on the right. Findings are nonspecific; consider mild edema and/or pneumonitis. There are a couple of punctate calcified granulomas in the left lung. Pleural spaces: Trace bilateral pleural effusions. Heart: Mild coronary artery calcifications. Mild/borderline cardiomegaly. Lymph nodes: Small calcified left hilar lymph nodes, compatible with old granulomatous disease. Liver: Probable fatty infiltration of the liver, which is suboptimally evaluated after IV contrast administration. Bones/joints: Scoliosis and osteoarthritic changes. No evidence of an acute fracture. Soft tissues: Unremarkable. IMPRESSION: 1. The peripheral pulmonary arteries are suboptimally evaluated/opacified. Otherwise, no evidence of a pulmonary embolus. 2. Moderate mosaic attenuation in both lungs, compatible with air trapping. 3. Mild ground-glass opacities in both lungs, greater on the right. Findings are nonspecific; consider mild edema and/or pneumonitis. 4. Trace bilateral pleural effusions. 5. Mild coronary artery calcifications. 6. Please see the body of the report for additional findings.
--- NOTE | 2021-10-06 11:52 | PC.NURSE ---
Pt has had 2 EKG done, POA at bedside.
[2021-10-06 11:55] LABS: Troponin I < 0.01 ng/ml (0.00-0.034)
--- NOTE | 2021-10-06 12:02 | PC.NURSE ---
pt at RAD
[2021-10-06 12:31] VITALS: BP 109/51; PULSE 49; O2SAT 96
[2021-10-06 12:46] VITALS: BP 126/65; PULSE 49; O2SAT 97
[2021-10-06 13:01] VITALS: BP 117/68; PULSE 49; O2SAT 96
[2021-10-06 14:17] VITALS: BP 124/78; PULSE 102; RESP 17; TEMP 36.8; O2SAT 96
== END 2021-10-06 15:01 | disposition home or self-care (01) ==
PROVIDERS: Emergency Provider Student in an Organized Health Care Education/Training Program; PCP Family Medicine
DX: M54.6 Pain in thoracic spine (principal); E78.1 Pure hyperglyceridemia; I10 Essential (primary) hypertension; I45.4 Nonspecific intraventricular block; E78.5 Hyperlipidemia, unspecified; E11.9 Type 2 diabetes mellitus without complications; K85.90 Acute pancreatitis without necrosis or infection, unspecified; G47.30 Sleep apnea, unspecified; E66.9 Obesity, unspecified; F32.A Depression, unspecified; Z79.1 Long term (current) use of non-steroidal anti-inflammatories (NSAID); Z79.84 Long term (current) use of oral hypoglycemic drugs; Z79.899 Other long term (current) drug therapy; Z91.030 Bee allergy status; Z68.41 Body mass index [BMI] 40.0-44.9, adult
CPT/HCPCS: 71045; 71275; 80053; 83690; 84484; 85025; 85378; 93005; 96365; 96374; 96375; 99285; Q9967

== ENCOUNTER 2021-10-24 12:37 | Outpatient (RCR) | payer BC, SELFPAY ==
--- NOTE | 2021-10-24 15:32 | HMH.PTOPEV ---
PT Outpatient Evaluation Rehab PT Outpatient Evaluation Start: 10/24/21 12:46 Freq: Status: Active Protocol: Document 10/24/21 12:46 BRIAN (Rec: 10/24/21 15:32 PDESEROUX [id number]) Electronically Signed By Tommy Lombardi, JOSEPHINE 10/24/21 12:46 Outpatient Therapy Subjective History Subjective History Pt. is a 51 year old male who presents to [facility] Out[facility] Physical Therapy Services in [place] for the initial evaluation this date( 10/24/21) w/ c/o subacute and constant T-spine P! and muscle spasms of insidious onset 5 weeks ago. Pt. reports laying supine on a heating pad, falling asleep, then waking up the next morning not being able to move, so he called an ambulance to transport him to the hospital. Pt. reports having CT scans, but hasn't heard back from his MD about the scan. Pt. denies having any steroid injections for current complaint of P!. Pt. reports having some symptom relief w/ laying supine and taking his prescribed muscle relaxers and pain medicine. Pt . reports symptom worsen w/ every activity. Pt. 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 Pt. RTMD 11/04/21. Current medications include Cyclobenzaprine HCl and Toradol. PMH includes Pancreatitis and Type II diabetes. Pt. denies pacemaker , denies history of cancer( self), denies latex nor medicational allergies. Chief Complaint Pain,Spasms,Stiff Symptom Type Ache,Throb,Sharp,Shooting Symptoms Relieved By Rest/Positioning,Ice,Brace/ Support,Prescription Meds Symptoms Aggravated By Standing,Bending/Stooping, Physical Activity,Twisting, Walking,Lifting Prior Functional L
== END 2021-12-11 16:44 | disposition home or self-care (01) ==
LOC: PT.CARL 12:37
PROVIDERS: PCP Family Medicine; Visit Provider Family Medicine
DX: M54.50 Low back pain, unspecified (principal); M54.6 Pain in thoracic spine
CPT/HCPCS: 97010; 97014; 97033; 97035; 97110; 97140; 97163; G0283